=== PATIENT | female | born 1955 | race Caucasian/White ===

== ENCOUNTER → 2016-09-22 | Outpatient (CLI) | payer OTHER ==
[~2016-09-22] MED LIST: AMOX500C3 PO; AMPH20TA2 PO; CINN1CAP2 PO; FLUO20CA35 PO; FLUV100T2 PO; LAMO200T38 PO; LAMO25TA PO; LEVAAER2 INH; LRS10 PO; MULT-506 PO; TRIA3AER NAE; ZINC1CAP PO; ZNF/4 PO; ZOLP12.5 PO
--- NOTE | 2016-09-22 15:04 | DIAGNOSTIC IMAGING REPORT ---
LEFT FOOT MIN 3 VIEWS CLINICAL HISTORY: LEFT FOOT PAIN pain COMPARISON: 08/19/2016 DISCUSSION: Transverse fracture base fifth metatarsal. No significant bony union compared to the prior study. A partial developing nonunion is considered. Subtle sclerosis of the bone ends primarily seen laterally. No additional acute bony abnormality. There is no evidence for soft tissue swelling. IMPRESSION: No significant interval healing of the transverse fracture base fifth metatarsal. Partial developing nonunion is considered. Electronically signed by: Ghulam Ash M.D. 09/22/2016 3:02 PM
== END | disposition home or self-care (01) ==
LOC: C.RDSM 08:00
PROVIDERS: ATTEND Physical Medicine & Rehabilitation Sports Medicine
DX: S92.352A Displaced fracture of fifth metatarsal bone, left foot, initial encounter for closed fracture (principal); X58.XXXA Exposure to other specified factors, initial encounter

== ENCOUNTER → 2016-09-28 | Outpatient (CLI) | payer OTHER | END | disposition home or self-care (01) | LOC: C.RDSM 07:45 | PROVIDERS: ATTEND Physical Medicine & Rehabilitation Sports Medicine | DX: M25.532 Pain in left wrist (principal) ==

== ENCOUNTER → 2016-12-18 | Outpatient (CLI) | payer OTHER ==
[~2016-12-18] MED LIST changes: +CEPH500C PO; +LEVA45AE INH; +TRIA1SPR4 NAE; -ZINC1CAP PO
[2016-12-18 14:45] LABS: HEMATOCRIT 39.3 % (37-47); MEAN CELL VOLUME 87.3 fL (80-100); MEAN CORPUSCULAR HEMOGLOBIN 29.3 pg (25-34); MEAN CORPUSCULAR HGB CONC 33.6 g/dl (32-36); MEAN PLATELET VOLUME 10.3 fL (7.4-10.4); PLATELET COUNT 272 K/uL (130-400); WHITE BLOOD COUNT 5.76 K/uL (4.8-10.8)
[2016-12-18 15:03] LABS: ALT/SGPT 23 U/L (12-78); BLOOD UREA NITROGEN 12 mg/dl (7-18); BUN/CREATININE RATIO 18.4 (10-20); CALCIUM 8.7 mg/dl (8.5-10.1); CARBON DIOXIDE 28 mmol/L (21-32); CHLORIDE 106 mmol/L (98-107); CHOLESTEROL 202 mg/dl (0-200); CREATININE 0.67 mg/dl (0.60-1.20); GLUCOSE 91 mg/dl (70-99); POTASSIUM 4.5 mmol/L (3.5-5.1); SODIUM 141 mmol/L (136-145); TRIGLYCERIDES 86 mg/dl (0-150); VERY LOW DENSITY LIPOPROT CALC 17 mg/dl
[2016-12-18 15:06] LABS: ALKALINE PHOSPHATASE 101 U/L (45-117); AST/SGOT 17 U/L (15-37); CHOLESTEROL/HDL RATIO 3.5; HDL CHOLESTEROL 57 mg/dl; LDL CHOLESTEROL CALCULATED 128 mg/dl
--- NOTE | 2016-12-23 11:44 | CODING QUERY NO DIAGNOSIS ---
TREATMENT RENDERED WITHOUT A DIAGNOSIS Diana ZELAYA, To promote full compliance with coding requirements relating to patient care, physician participation is requested in all cases of dye and chemical coordinator uncertainty. Please assist us with providing a diagnosis/symptom for the test(s) below: A diagnosis/symptom was not documented on your Order. A valid diagnosis/symptom is required to bill all insurances. Please remember that we are unable to code a diagnosis of rule out, probable, possible, questionable, or suspected. Tests that require a diagnosis: * ROUTINE ECG DIAGNOSIS: DATE OF SERVICE: 12/18/16 Provider Signature: Date: Thank you Alexander Lewis [facility] Information Management Once completed, please kindly fax back to [phone] For questions please call [phone]
== END | disposition home or self-care (01) ==
LOC: C.LAB1850 12:46
PROVIDERS: ATTEND Physician Assistant
DX: Z00.00 Encounter for general adult medical examination without abnormal findings (principal); Z01.818 Encounter for other preprocedural examination; G56.01 Carpal tunnel syndrome, right upper limb

== ENCOUNTER → 2017-01-05 | Day surgery (SDC) | payer OTHER ==
[2016-12-02 08:50] VITALS: Ht 172.7 cm; Wt 98.6 kg
[~2017-01-05] VITALS: Ht 172.7 cm; Wt 98.6 kg
[~2017-01-05] MED LIST changes: +ATROPINE SULFATE 0.1 MG/ML 5ML SYR IV PRN; +BUPIVACAINE 0.5 % 5 MG/1 ML PF 10ML VIAL ONE; +CEFAZOLIN 2000 MG/60 ML D5W IV SCH; +EpHEDrine SULFATE INJ 50 MG/ML AMP IV PRN; +FENTANYL CITRATE INJ 50 MCG/1 ML 2 ML VIAL IV PRN; +FENTANYL CITRATE INJ 50 MCG/1 ML 2 ML VIAL ONE; +LACTATED RINGER'S 1000ML 1,000 ML IV SCH; +LIDOCAINE HCL 2% LOCAL 20 ML VIAL ONE; +MIDAZOLAM HCL 1 MG/ML 2ML VIAL ONE; +ONDANSETRON INJ 2 MG/ML 2 ML VIAL IV PRN; +PROPOFOL IV EMULSION 10 MG/ML 20 ML VIAL IV ONE; +SODIUM CHLORIDE 0.9% 1000ML 1,000 ML IV SCH
--- NOTE | 2017-01-05 06:43 | History & Physical Bridge Note ---
H&P Re-Evaluation Bridge Note: I have examined the patient, reviewed the History & Physical and in the interval since the performance of the History & Physical I have noted the following changes of clinical significance: No changes noted
--- NOTE | 2017-01-05 06:44 | Discharge Instructions ---
Discharge Instructions Date of Service Jan 05, 2017. Visit Reason for Visit: Left Carpal Tunnel Syndrome Discharge Discharge Diagnosis / Problem: same Discharge Goals Goal(s): Decrease discomfort, Improve function Medications Stopped Medications Name(s): No recent blood thinners Restart Stopped Medication(s): resume all scripts as directed Activity Recommendations Activity Limitations: as noted below Lifting Limitations: until after follow-up appointment Exercise/Sports Limitations: until after follow-up appointment May Resume Sexual Activity: when tolerated Shower/Bathe: keep incision dry Driving or Machine Use: resume 1 day after discharge Anesthesia . Post Anesthesia Instructions: If you have had General Anesthesia or IV Sedation: * Do not drive today. * Resume driving when surgeon permits. * Do not make important decisions or sign legal documents today. * Call surgeon for: 1. Temperature elevations greater than 101 degrees F. 2. Uncontrollable pain. 3. Excessive bleeding. 4. Persistent nausea and vomiting. 5. Medication intolerance (nausea, vomiting or rash). * For nausea and vomiting use only clear liquids such as: tea, soda, bouillon until nausea subsides, then gradually increase diet as tolerated. * If you have any concerns or questions, call your surgeon's office. If physician is unavailable and it is an emergency, call 911 or go to the nearest emergency room. . Instructions / Follow-Up Instructions / Follow-Up The following are instructions to follow after minor hand surgery. ACTIVITY RECOMMENDATIONS: * Minimize activity until your first visit after surgery. * No excessive walking, jogging, sports or laboring. * Return to activity is individualized. Most patients are able to return to everyday activities within 2 weeks. * Return to sports or intensive labor usually occurs at 1-2 months. * DRIVING: Driving may be resumed when you feel you have adequate pain control and use of the hand. * BATHING: You may shower or sponge-bathe immediately after surgery. The dressing will need to be covered with a plastic bag or plastic wrap until the dressing is changed on the fourth or fifth day after surgery. Once the dressing has been changed on the fourth or fifth day after surgery, you may shower and get the incision wet. * Wash with regular soap and water. * Do not bathe (submerge the incision), soak, swim or use a hot tub until the incision is completely healed over with normal skin and the doctor has given the OK to proceed. * There is no need to apply any ointments, powders or salves to your incision. * Do not apply alcohol or hydrogen peroxide directly to the incision. Diluted peroxide (50:50 mixture with sterile saline) may be used to clean dried blood from around the incision area. WORK/SCHOOL: * You may return to sedentary work or school when you are feeling comfortable. This is usually 3-7 days after surgery. * Expect increased discomfort with increased activity. Continue to elevate and ice the hand as much as possible. DIET: * Resume previous diet. MEDICATIONS: * You will have a prescription for pain medication and an anti-inflammatory medication after surgery. Use the pain pills for severe pain and the anti-inflammatory for less severe pain. * Once the pain pills have run out, try to use the anti-inflammatory. If this is not effective then contact the office for assistance. * The pain medication may cause nausea, constipation and sleepiness. You should see how they affect you before driving or similar activity. * The anti-inflammatory may cause stomach upset and bleeding. If this occurs, let your doctor know immediately . * Some patients may need blood clot prevention. This can be done with either a pill or a simple shot. Your doctor will advise you on when to begin these medications and how to take them. * Do not take aspirin or other anti-inflammatory products (i.e. Advil or Aleve ) if taking blood thinner medication. * Take a stool softener like Colace or a stimulant like Senokot to prevent constipation. SPECIAL CARE INSTRUCTIONS: ICE: * Do not apply ice directly to the skin. * Use a thin dressing or stockinet between the skin and ice bag. The dressing in place after surgery will suffice. * Apply ice for 20-30 minutes and repeat every 2-4 hours. This is especially important for the first 3-7 days after surgery. * Once the pain improves, use ice as needed. ELEVATION: * Keep your hand elevated at or above the level of your heart as much as possible. * Expect some increased discomfort and swelling if you allow your hand to hang down for any length of time. DRESSING: * Your dressing will be changed 4-5 days after surgery by the physical therapist or physician's communications assistant. Leave your dressing intact until this time. * You may then change your dressing daily with clean dry gauze or Band-aids and a soft wrap or stockinet. * Always wash your hands prior to touching the incision area. * Once the stitches are removed, you may leave the wound open to air or cover with a thin bandage. * There is no need to apply any ointments, powders or salves to your incision. * Expect some bloody drainage for the first few days after surgery. * Leave the tape strips in place (if present) for 5-7 days. * The initial dressing after surgery may become soaked with blood or fluid which is normal. You may reinforce your dressing with clean, dry gauze as needed. BRACE: * Bracing is generally not needed after routine hand surgery. THERAPY: * Physical therapy may be prescribed after your surgery. * For carpal tunnel and trigger digit surgery you may begin moving your fingers and wrist immediately after surgery as tolerated. * Be careful to not overuse. * Once the sutures are removed, further range of motion exercises can be performed. * Hand incisions may be very sensitive for a few months after surgery so avoid excessive pressure on the incision. If necessary, use a padded weightlifters' glove. * You may massage the incision with skin cream to make it less sensitive and reduce scarring. * Hand strength usually returns with normal use. * If needed, squeezing a soft sponge or Play-dough may help. * Your doctor will recommend physical therapy if necessary. PROBLEMS/QUESTIONS: * If you have any problems such as severe pain, numbness, tingling or high fevers or if you have any questions, please contact the office at [phone]. * It is not uncommon to have some numbness and tingling after the surgery especially if you have had a nerve block done. This should gradually improve over the first 1- 2 days. If this persists longer or worsens then contact the office. FOLLOW UP VISIT: * If not already scheduled, please call the office at to schedule follow-up appointments for approximately 10 days, 6 weeks and 3 months after surgery. Diet Recommendations Recommended Home Diet: resume previous diet Procedures Procedures Performed: left carpal tunnel release Pending Studies Studies pending at discharge: no Medical Emergencies . Who to Call and When: Medical Emergencies: If at any time you feel your situation is an emergency, please call 911 immediately. . Non-Emergent Contact Non-Emergency issues call your: Specialist Call Non-Emergent contact if: temperature is above 101.5 . . "Provider Documentation" section prepared by Greg Earl.
[2017-01-05 07:34] VITALS: TEMP 36.3
--- NOTE | 2017-01-05 07:34 | [facility] Post Operative Brief Note ---
Immediate Operative Summary Operative Date Jan 05, 2017. Pre-Operative Diagnosis Left Carpal Tunnel Syndrome Post-Operative Diagnosis same Procedure(s) Performed Left Carpal Tunnel Open Release Surgeon Dr. Anders Earl Loft Worker Pile Driving Surgeon(s) Dr. Teri Correa Estimated Blood Loss trace Findings CTS Fluids (cc crystalloids) see anesthesia report Specimens none Drains none Anesthesia local/sedation Complication(s) None Disposition Recovery Room / PACU
[2017-01-05 07:58] VITALS: BP 140/72; PULSE 73; O2SAT 99
--- NOTE | 2017-01-05 08:03 | OPERATIVE REPORT ---
DATE OF OPERATION: 01/05/2017 SURGEON: Greg Earl MD POSTAL CARRIER: Sandeep Minor MD PREOPERATIVE DIAGNOSIS: Carpal tunnel syndrome left upper extremity. POSTOPERATIVE DIAGNOSIS: Same. OPERATION PERFORMED: Left carpal tunnel release. ANESTHESIA: Local by surgeon, IV sedation by anesthesia. PERIOPERATIVE SITUATION: Medically cleared female with intractable numbness and tingling in her hand wants to proceed with surgical treatment, has failed conservative management carpal tunnel is confirmed by EMG nerve conduction study. DESCRIPTION OF PROCEDURE: The patient appropriately identified, site verified, consent verified, 2 grams of Ancef confirmed as being given. The left upper extremity was sterilely injected with 5 mL of 0.5% plain Marcaine and 5 mL of 2% plain lidocaine. The arm was then prepped and draped in usual routine fashion. Tourniquet was inflated to 250 mmHg after exsanguination of limb with a rubber Esmarch bandage for a total of approximately 20 minutes. A curvilinear incision was then made based on the fourth ray. Blunt dissection down to the fascia. There was a Gantzer's muscle into the palm. This was dissected bluntly off the transverse carpal ligament and the fascia. This was then identified and the fascia released under direct vision for approximately 1.5 cm proximal to the hamate to the superficial palmar arch. The floor of the carpal canal had no masses. The wound was then irrigated. The motor takeoff branch was not explored. The wound was then closed with horizontal 4-0 nylon mattress sutures, Dermabond and appropriate volar splint and dressing. Estimated blood loss was trace. Crystalloid per anesthesia report. No DVT prophylaxis required. I attest to the content of the Intraoperative Record and any orders documented therein. Any exceptio ns are noted below.
--- NOTE | 2017-01-05 08:08 | Anesthesia Progress Nt - [facility] ---
Anesthesia Post Op Note Date & Time Jan 05, 2017 at 08:07 Vital Signs Pain Intensity: 0 Vital Signs Past 12 Hours Date Time Temp Pulse Resp B/P Pulse Ox O2 Delivery O2 Flow Rate FiO2 01/05/17 07:34 36.3 78 14 122/60 99 Room Air 01/05/17 06:18 36.6 73 16 152/83 98 Room Air Notes Mental Status: alert / awake / arousable, participated in evaluation Pt Amnestic to Procedure: Yes Nausea / Vomiting: adequately controlled Pain: adequately controlled Airway Patency, RR, SpO2: stable & adequate BP & HR: stable & adequate Hydration State: stable & adequate Anesthetic Complications: no major complications apparent
== END | disposition home or self-care (01) ==
LOC: X.SURG 06:05
PROVIDERS: ATTEND Physical Medicine & Rehabilitation Sports Medicine
DX: G56.02 Carpal tunnel syndrome, left upper limb (principal); J45.909 Unspecified asthma, uncomplicated; G47.33 Obstructive sleep apnea (adult) (pediatric); M19.90 Unspecified osteoarthritis, unspecified site; Z90.89 Acquired absence of other organs; Z90.710 Acquired absence of both cervix and uterus; Z98.41 Cataract extraction status, right eye; Z98.42 Cataract extraction status, left eye; Z96.653 Presence of artificial knee joint, bilateral; Z98.890 Other specified postprocedural states; Z86.718 Personal history of other venous thrombosis and embolism; E66.9 Obesity, unspecified; Z68.33 Body mass index [BMI] 33.0-33.9, adult

== ENCOUNTER → 2017-01-21 | Outpatient (CLI) | payer OTHER ==
[~2017-01-21] MED LIST changes: -ATROPINE SULFATE 0.1 MG/ML 5ML SYR IV PRN; -BUPIVACAINE 0.5 % 5 MG/1 ML PF 10ML VIAL ONE; -CEFAZOLIN 2000 MG/60 ML D5W IV SCH; -EpHEDrine SULFATE INJ 50 MG/ML AMP IV PRN; -FENTANYL CITRATE INJ 50 MCG/1 ML 2 ML VIAL IV PRN; -FENTANYL CITRATE INJ 50 MCG/1 ML 2 ML VIAL ONE; -LACTATED RINGER'S 1000ML 1,000 ML IV SCH; -LIDOCAINE HCL 2% LOCAL 20 ML VIAL ONE; -MIDAZOLAM HCL 1 MG/ML 2ML VIAL ONE; -ONDANSETRON INJ 2 MG/ML 2 ML VIAL IV PRN; -PROPOFOL IV EMULSION 10 MG/ML 20 ML VIAL IV ONE; -SODIUM CHLORIDE 0.9% 1000ML 1,000 ML IV SCH
--- NOTE | 2017-01-21 15:16 | DIAGNOSTIC IMAGING REPORT ---
LEFT FOOT 3 VIEWS CLINICAL HISTORY: Left foot pain. FINDINGS: 3 views of the left foot are compared to study dated 09/22/2016. The skeletal structures are osteopenic. There is incomplete healed fracture through the proximal shaft of the fifth metatarsal. This fracture is nondistracted. No acute fracture is seen. The joint spaces of the foot appear well-maintained. Mild degenerative spurring seen along the dorsal aspect of the tarsal bones. There is a tiny plantar calcaneal enthesophyte. The overlying soft tissues are within normal limits. IMPRESSION: 1. No acute fracture is seen. 2. There is an incompletely healed fracture through the proximal shaft of the fifth metatarsal. This fracture was also seen on 09/22/2016. Electronically signed by: Dex Moreno M.D. 01/21/2017 3:15 PM Dictated Date/Time: 01/21/2017 3:13 PM
== END | disposition home or self-care (01) ==
LOC: C.RDSM 15:08
PROVIDERS: ATTEND Physician Assistant
DX: M79.672 Pain in left foot (principal); Z87.828 Personal history of other (healed) physical injury and trauma

== ENCOUNTER 2017-07-12 13:56 | Emergency (ER) | payer OTHER ==
[~2017-07-12] VITALS: Ht 172.7 cm; Wt 95.8 kg
[~2017-07-12 13:56] MED LIST changes: -CEPH500C PO; -LEVA45AE INH; -TRIA1SPR4 NAE
[2017-07-12 14:01] VITALS: TEMP 36.9; Ht 172.7 cm; Wt 95.8 kg
[2017-07-12] MEDS ORDERED: LEVA45AE INH (14:49)
[2017-07-12] MEDS ORDERED: TRIA1SPR4 NAE (14:49)
--- NOTE | 2017-07-12 14:55 | EMERGENCY ROOM VISIT NOTE ---
ED Visit Note First contact with patient: 14:20 CHIEF COMPLAINT: Right lower leg swelling and pain HISTORY OF PRESENT ILLNESS: This 61-year-old female patient presents to the emergency department, ambulatory, complaining of pain and swelling of the right lower calf and ankle. The patient states last night, she did notice redness and warmth in the area as well. She states she has hardware in the ankle from an accident which happened several years ago, and is concerned that the hardware to be infected. 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 The patient has been no recent travel, and has not experienced any trauma to the leg. She is not on blood thinners, hormone therapy, or use any tobacco. The patient describes the pain as soreness, and states it is in the anterior to lateral aspect of the distal de la fuente and ankle. She states on Wednesday, she put compression stockings on the leg due to the discomfort, however she noticed that the swelling became significantly worse after. She called her PCP today, and was unable to get an appointment, and was advised to come here. She does have history of phlebitis. She denies any fever, chills, nausea, vomiting. She states it does hurt to the touch. REVIEW OF SYSTEMS: A 10 system review of systems was performed with positives and pertinent negatives listed in the history of present illness. All other systems were reviewed and are negative. ALLERGIES: None MEDICATIONS: Please see list. Medications were personally reviewed by me at bedside. PMH: ADHD, anxiety, depression, fibromyalgia SOCIAL HISTORY: The patient lives locally with her boyfriend. She denies drug, alcohol, tobacco use. PHYSICAL EXAM: VITALS: Vitals are noted on the nurse's note and reviewed by myself. Vital signs stable. GENERAL: This is a 61-year-old female, in no acute distress, nondiaphoretic, well-developed well-nourished. SKIN: The skin was without rashes, erythema, edema, or bruising. There is no tenting of the skin. Capillary reflex less than 2 seconds. HEAD: Normocephalic atraumatic. EARS: External auditory canals clear, tympanic membranes pearly stokes without erythema or effusion bilaterally. EYES: Pupils equal round and reactive to light and accommodation. Conjunctivae without injection, sclerae without icterus. Extraocular movements intact. NOSE: Patent, turbinates without inflammation or discharge. No sinus tenderness. MOUTH: Mucous membranes moist. Tonsils are not enlarged. Pharynx without erythema or exudate. Uvula midline. Airway patent. Tongue does not deviate. NECK: Supple without nuchal rigidity. No lymphadenopathy. No thyromegaly. Cervical spine is nontender. No JVD. HEART: Regular rate and rhythm without murmurs gallops or rubs. LUNGS: Clear to auscultation bilaterally without wheezes, rales or rhonchi. No dullness to percussion. No retractions or accessory muscle use. ABDOMEN: Positive bowel sounds x 4. Normal tympanic percussion. Soft, nontender, without masses or organomegaly. Olivo sign negative. No guarding or rebound tenderness. MUSCULOSKELETAL: No muscle atrophy. There are mild edema and erythema of the right lower extremity, from the mid de la fuente to the ankle. This does not appear cellulitic in nature at this time. Full range of motion without joint tenderness in all extremities. No tenderness to palpation, with the exception of the right lower de la fuente and ankle. Normal gait. Strength 5/5 throughout. NEURO: Patient was alert and oriented to person place and time. Normal sensation to light and sharp touch. Deep tendon reflexes 2+ throughout. No focal neurological deficits. RADIOLOGY: X-Ray Right Tib/Fib: R TIBIA/FIBULA 2 VIEWS ROUTINE CLINICAL HISTORY: Right lower leg swelling COMPARISON: March 2014 DISCUSSION: There are postsurgical changes of a total knee arthroplasty. There are postsurgical posterior back deformity is involving the distal fibula and distal tibia. No acute fractures are visualized. In addition there are multiple screw tracks present within the tibia as visualized on the lateral view. There is mild lucency beneath the tibial flange of the tibial component of the knee prosthesis. There are no conventional radiographic findings to indicate acute osteomyelitis. There is mild diffuse soft tissue edema. IMPRESSION: Old postsurgical and post traumatic change. Soft tissue swelling. No conventional radiographic evidence of acute osteomyelitis Electronically signed by: Oswald August M.D. 07/12/2017 2:51 PM Dictated Date/Time: 07/12/2017 2:50 PM U/S Doppler Right Lower Extremity: R VENOUS DOPP LOWER EXT UNILAT HISTORY: 61 years-old Female right de la fuente/calf pain/swelling acute right calf pain and swelling COMPARISON: Right tibia and fibula radiographs of same day TECHNIQUE: Multiple real-time sonographic images of the right lower extremity deep venous system were obtained assessing grayscale appearance, color and spectral flow. FINDINGS: Soft tissue edema is noted within the right lower extremity. Incidental note is made of an ill-defined 0.9 x 0.7 x 0.8 cm hypoechoic fluid collection within the pretibial tissues at area of soft tissue pain and swelling. There is normal flow, compressibility, augmentation and phasicity of the right lower extremity deep venous system. IMPRESSION: 1. No sonographic evidence of deep venous thrombosis. 2. Soft tissue edema of the right lower extremity with ill-defined hypoechoic collection within the pretibial tissues at the area of concern, 0.9 cm. Hematoma, phlegmon or developing abscess are differential considerations. The above report was generated using voice recognition software. It may contain grammatical, syntax or spelling errors. Electronically signed by: Jerry Dove M.D. 07/12/2017 3:46 PM Dictated Date/Time: 07/12/2017 3:44 PM EMERGENCY DEPARTMENT COURSE: Patient was seen and evaluated as above. Based on her history of having hardware in the leg as well as DVT, an x-ray and ultrasound were obtained. Both of these were negative for fracture and DVT, however the ultrasound did show evidence of possible developing abscess, phlegmon, or hematoma. The patient states there is been no trauma, and she states the redness was more severe last night. I suspect a possible developing abscess associated with cellulitis, however I discussed the case with Dr. Ramirez , who recommended limiting the patient follow-up for recheck in one to 2 days. The patient was uncomfortable with this, she states she lives far away from the hospital, so I provided her with a prescription for Keflex and advised her to begin taking it if her symptoms worsen or do not improve in the next 24-48 hours. I did advise the patient that she still needed to see her PCP in 48 hours for recheck. The patient is in agreement with the assessment and plan at this time. The patient was discharged home in good condition. I attest that I have personally reviewed the patient's current medication list. Patient was found to have normal blood pressure on screening and does not require follow-up. DIFFERENTIAL DIAGNOSIS: DVT, cellulitis, abscess, hematoma, osteomyelitis, malignancy, and others DIAGNOSIS: Right lower leg pain and swelling, possible cellulitis Problem List Medical Problems: (1) Asthma, Unspecified Status: Chronic (2) Cellulitis Status: Resolved (3) Cellulitis Status: Resolved (4) Dog bite Status: Resolved (5) Dog bite Status: Resolved (6) Dog bite Status: Resolved (7) Esophageal Reflux Status: Chronic (8) History of anxiety Status: Chronic (9) Hx-Venous Thrombosis&Embolism Status: Resolved (10) Infected dog bite of lower leg Status: Resolved (11) Infected dog bite of lower leg Status: Resolved (12) Loc Osteoarth Nos-L/Leg Status: Chronic (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 Surgical Problems: (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 Current/Historical Medications Scheduled Amphetamine-Dextroamphetamine 20MG (Adderall 20MG), 20 MG PO BID Baclofen (Baclofen), 10 MG PO TID Cephalexin Monohydrate (Keflex), 500 MG PO QID Cinnamon (Cinnamon), 1 CAP PO QAM Fluoxetine (Prozac), 2 TAB PO QAM Fluvoxamine Maleate (Luvox), 100 MG PO HS Lamotrigine (Lamictal), 200 MG PO QAM Lamotrigine (Lamictal), 25 MG PO QAM Multivitamin (Multivitamin), 1 TAB PO QAM Triamcinolone Acetonide (Nasal (Nasacort Allergy 24Hr), 2 SPRAYS LAVONNE DAILY Zolpidem Tartrate (Ambien Cr), 12.5 MG PO HS Scheduled PRN Amoxicillin (Amoxil), 2,000 MG PO DAILY PRN for BEFORE DENTIST Levalbuterol Tartrate (Levalbuterol Tartrate Hfa), 2 PUFFS INH DAILY PRN for SOB /Wheezing Tizanidine (Tizanidine HCl), 2 MG PO Q4 PRN for fibromyalgia Allergies Coded Allergies: No Known Allergies (Unverified , 07/12/17) seasonal allergies = runy nose/sneezing Vital Signs Date Time Temp Pulse Resp B/P (MAP) Pulse Ox O2 Delivery O2 Flow Rate FiO2 07/12/17 15:52 70 16 146/81 98 07/12/17 14:01 36.9 95 20 159/82 95 Room Air Departure Information Impression Primary Impression: Pain in right de la fuente Dispostion Home / Self-Care Condition GOOD Prescriptions Cephalexin Monohydrate (Keflex) 500 Mg Cap 500 MG PO QID for 10 Days, #40 CAP Prov: Keri Mcneil, NATHALIE 07/12/17 Referrals RV. Hogan MD (PCP) Patient Instructions ED Infec Skin Cellulitis, My [facility] Additional Instructions You have seen in the emergency department stay for right de la fuente pain. X-ray did rule out osteomyelitis, and ultrasound to rule out blood clot. The ultrasound did show an area that could be a possible developing abscess, and with the redness and warmth of your skin, you were given an antibiotic to take if your symptoms do not improve by tomorrow. Cephalexin(Keflex) 500mg: Take one pill four times daily for 10 days for your skin infection. All antibiotics can cause diarrhea. If this occurs and you feel worse or it does not resolve in 1-2 days follow up with your doctor or return to the Emergency Department as this could be signs of serious underlying problems. Any medication can cause an allergic reaction, stop the pills immediately and return to the ER for rash, hives, breathing difficulties, or swelling. Please follow up with your PCP in one to 2 days for recheck of the redness and swelling. Return to the emergency department for worsening fever, chills, nausea, vomiting , redness, swelling, puslike drainage, or other concerning symptoms.
--- NOTE | 2017-07-12 15:47 | DIAGNOSTIC IMAGING REPORT ---
R VENOUS DOPP LOWER EXT UNILAT HISTORY: 61 years-old Female right de la fuente/calf pain/swelling acute right calf pain and swelling COMPARISON: Right tibia and fibula radiographs of same day TECHNIQUE: Multiple real-time sonographic images of the right lower extremity deep venous system were obtained assessing grayscale appearance, color and spectral flow. FINDINGS: Soft tissue edema is noted within the right lower extremity. Incidental note is made of an ill-defined 0.9 x 0.7 x 0.8 cm hypoechoic fluid collection within the pretibial tissues at area of soft tissue pain and swelling. There is normal flow, compressibility, augmentation and phasicity of the right lower extremity deep venous system. IMPRESSION: 1. No sonographic evidence of deep venous thrombosis. 2. Soft tissue edema of the right lower extremity with ill-defined hypoechoic collection within the pretibial tissues at the area of concern, 0.9 cm. Hematoma, phlegmon or developing abscess are differential considerations. The above report was generated using voice recognition software. It may contain grammatical, syntax or spelling errors. Electronically signed by: Jerry Dove M.D. 07/12/2017 3:46 PM Dictated Date/Time: 07/12/2017 3:44 PM
[2017-07-12 15:52] VITALS: BP 146/81; PULSE 70; O2SAT 98
[2017-07-12] MEDS ORDERED: CEPH500C PO (16:10)
== END 2017-07-12 16:25 | disposition home or self-care (01) ==
LOC: C.EDB 13:58 → C.EDD 16:25
DX: M79.661 Pain in right lower leg (principal); Z86.718 Personal history of other venous thrombosis and embolism; J45.909 Unspecified asthma, uncomplicated; K21.9 Gastro-esophageal reflux disease without esophagitis; F90.9 Attention-deficit hyperactivity disorder, unspecified type; F41.9 Anxiety disorder, unspecified; F32.9 Major depressive disorder, single episode, unspecified; M79.7 Fibromyalgia; Z79.899 Other long term (current) drug therapy

== ENCOUNTER → 2017-08-16 | Outpatient (CLI) | payer OTHER ==
[~2017-08-16] MED LIST changes: +LEVA45AE INH; -LEVAAER2 INH; +TRIA1SPR4 NAE; -TRIA3AER NAE
--- NOTE | 2017-08-16 14:39 | DIAGNOSTIC IMAGING REPORT ---
Study: Fusion CT of the sinuses. HISTORY: Chronic sinusitis FINDINGS: Frontal sinuses are clear. There has been a high-grade partial ethmoidectomy. There has been placement of right antral window which is patent. There is a small left antral window which is patent. There is minimal hypertrophic change of the nasal turbinates with no significant component of nasal canal stenotic change. Sphenoid sinuses are clear. Osseous structures of the oral margins are intact. IMPRESSION: 1. Operative findings consistent with partial ethmoidectomy, as well as antral window placement. 2. Minimal scattered mucosal thickening of all major sinuses. 3. Minimal hyperplastic change of the nasal turbinates with no significant nasal occlusive change Electronically signed by: Ghulam Ash M.D. 08/16/2017 2:38 PM Dictated Date/Time: 08/16/2017 2:36 PM
== END | disposition home or self-care (01) ==
LOC: C.CTS 14:17
PROVIDERS: ATTEND Physician Assistant
DX: J32.9 Chronic sinusitis, unspecified (principal)

== ENCOUNTER → 2017-08-17 | Outpatient (CLI) | payer OTHER ==
--- NOTE | 2017-08-17 14:02 | DIAGNOSTIC IMAGING REPORT ---
CHEST 2 VIEWS ROUTINE CLINICAL HISTORY: 61 years-old Female presenting with ASTHMA. TECHNIQUE: PA and lateral views of the chest were obtained. COMPARISON: 11/06/2013. FINDINGS: Cardiomediastinal silhouette normal. Lungs and pleural spaces clear. Osseous structures normal. Upper abdomen normal. IMPRESSION: 1. No acute cardiopulmonary disease. Electronically signed by: Ty Schulz M.D. 08/17/2017 2:01 PM Dictated Date/Time: 08/17/2017 1:59 PM
== END | disposition home or self-care (01) ==
LOC: C.RAD1850 13:50
PROVIDERS: ATTEND Internal Medicine Pulmonary Disease
DX: J45.909 Unspecified asthma, uncomplicated (principal)

== ENCOUNTER → 2017-09-02 | Outpatient (CLI) | payer OTHER ==
[~2017-09-02] MED LIST changes: +LAMO200T35 PO; -LAMO200T38 PO
== END | disposition home or self-care (01) ==
LOC: C.RC 11:59
PROVIDERS: ATTEND Internal Medicine Pulmonary Disease
DX: J45.909 Unspecified asthma, uncomplicated (principal)

== ENCOUNTER → 2017-09-17 | Outpatient (CLI) | payer OTHER | END | disposition home or self-care (01) | LOC: C.RDSM 13:17 | PROVIDERS: ATTEND Physical Medicine & Rehabilitation Sports Medicine | DX: M79.672 Pain in left foot (principal) ==

== ENCOUNTER → 2017-12-06 | Outpatient (CLI) | payer OTHER ==
--- NOTE | 2017-12-06 16:06 | DIAGNOSTIC IMAGING REPORT ---
L LOWER EXT NONJOINT WITHOUT CLINICAL HISTORY: 62 years-old Female presenting with PAIN IN LT FOOT/HAS SCREWS/PLATES IN FOOT. TECHNIQUE: Multisequence, multiplanar MR imaging of the left foot was performed without the use of intravenous contrast. IV contrast: None. COMPARISON: Plain radiographs from 09/17/2017. FINDINGS: Localizer images: Unremarkable. No orthopedic hardware is apparent in the foot. Minimal bony edema and cystic change noted in the ventricular subjacent to the articulation with the medial cuneiform. Minimal cystic change noted along the dorsum of the medial cuneiform subjacent to the articulation with the base of the second metatarsal and middle cuneiform, which also demonstrate lesser degrees of cystic change, degenerative in etiology. No other evidence of bony edema. A marker is in place over the medial dorsum of the midfoot. No subjacent subcutaneous or deeper edema. No subjacent abnormality. Normal tendons of the foot. Normal muscle bulk and muscle signal intensity. 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 No specific abnormalities subjacent to the marker apart from mild degenerative change. Electronically signed by: Ty Schulz M.D. 12/06/2017 4:04 PM Dictated Date/Time: 12/06/2017 4:00 PM
== END | disposition home or self-care (01) ==
LOC: C.MRI 14:57
PROVIDERS: ATTEND Physical Medicine & Rehabilitation Sports Medicine
DX: M79.672 Pain in left foot (principal); M14.872 Arthropathies in other specified diseases classified elsewhere, left ankle and foot

== ENCOUNTER → 2018-02-07 | Outpatient (CLI) | payer OTHER ==
[2018-02-07 12:37] LABS: BASO % 1.4 %; BASO ABS # 0.09 K/uL (0-0.2); EOS % 3.5 %; EOS ABS # 0.23 K/uL (0-0.5); HEMATOCRIT 39.1 % (37-47); HEMOGLOBIN 13.3 g/dL (12.0-16.0); IG# 0.01 K/uL (0.00-0.02); LYMPH % 24.5 %; LYMPH ABS # 1.61 K/uL (1.2-3.4); MEAN CELL VOLUME 89.9 fL (80-100); MEAN CORPUSCULAR HEMOGLOBIN 30.6 pg (25-34); MEAN PLATELET VOLUME 10.1 fL (7.4-10.4); MONO % 9.9 %; MONO ABS # 0.65 K/uL (0.11-0.59); NEUT % 60.5 %; NEUT ABS # 3.98 K/uL (1.4-6.5); PLATELET COUNT 263 K/uL (130-400); RED CELL DISTRIBUTION WIDTH CV 13.6 % (11.5-14.5); RED CELL DISTRIBUTION WIDTH SD 44.9 fL (36.4-46.3); WHITE BLOOD COUNT 6.57 K/uL (4.8-10.8)
[2018-02-07 13:24] LABS: ALBUMIN 3.4 gm/dl (3.4-5.0); ALKALINE PHOSPHATASE 98 U/L (45-117); ALT/SGPT 30 U/L (12-78); AST/SGOT 25 U/L (15-37); BLOOD UREA NITROGEN 24 mg/dl (7-18); CALCIUM 8.5 mg/dl (8.5-10.1); CARBON DIOXIDE 29 mmol/L (21-32); CHOLESTEROL 201 mg/dl (0-200); CREATININE 0.87 mg/dl (0.60-1.20); GLUCOSE 96 mg/dl (70-99); LDL CHOLESTEROL CALCULATED 128 mg/dl; POTASSIUM 4.1 mmol/L (3.5-5.1); SODIUM 141 mmol/L (136-145)
== END | disposition home or self-care (01) ==
LOC: C.LAB1850 11:35
PROVIDERS: ATTEND Internal Medicine
DX: E78.5 Hyperlipidemia, unspecified (principal); E03.9 Hypothyroidism, unspecified; M15.9 Polyosteoarthritis, unspecified; J30.9 Allergic rhinitis, unspecified